=== PATIENT | female | born 1975 | race Caucasian/White ===

== ENCOUNTER 2016-10-23 12:15 | Emergency (ER) | payer OTHER | END 2016-10-23 16:34 | disposition home or self-care (01) | LOC: FER 12:15 | DX: S92.352A Displaced fracture of fifth metatarsal bone, left foot, initial encounter for closed fracture (principal); W01.0XXA Fall on same level from slipping, tripping and stumbling without subsequent striking against object, initial encounter; S90.32XA Contusion of left foot, initial encounter; F17.210 Nicotine dependence, cigarettes, uncomplicated | CPT/HCPCS: 73610; 73630; 99283 ==